=== PATIENT | female | born 1995 | race Caucasian/White ===

== ENCOUNTER 2021-03-25 16:21 | Emergency (ER) | payer MEDICAID ==
[~2021-03-25] VITALS: Ht 165.1 cm; Wt 74.8 kg
[2021-03-25 16:41] VITALS: BP 140/75
--- NOTE | 2021-03-25 16:46 | NUR ---
PATIENT AMBULATED TO BED 12.
--- NOTE | 2021-03-25 17:11 | NUR ---
25 Y/O FEMALE C/O VAGINAL BLEEDING WITH LOWER ABDOMINAL PAIN 5/10 DESCRIBES CRAMPING X 2 DAYS. PT STATES SHE HAD SMALL CLOTS LAST NIGHT AND THIS MORNING LARGE CLOTS WITH PAIN. LMP 02/05/21. 6 WEEKS . DENIES N/V, DENIES FEVER/CHILLS. [id number] DENIES PMH NKA
--- NOTE | 2021-03-25 17:55 | NUR ---
DR. LYMAN AT PT BEDSIDE FOR FURTHER EVALUATION.
--- NOTE | 2021-03-25 18:09 | NUR ---
US TECH AT PT BEDSIDE.
[2021-03-25 18:34] LABS: BASOPHILS % (AUTO) 0.1 % (0.0-2.0); EOSINOPHILS # (AUTO) 0.5 K/uL (0-0.4); EOSINOPHILS % (AUTO) 4.8 % (0.0-4.0); HEMOGLOBIN 13.5 g/dL (12.0-16.0); LYMPHOCYTES # (AUTO) 1.8 K/uL (2.5-16.5); LYMPHOCYTES % (AUTO) 16.3 % (20.5-51.1); MEAN CORPUSCULAR HEMOGLOBIN 29 pg (27-31); MEAN CORPUSCULAR HGB CONC 33 g/dL (33-37); MONOCYTES # (AUTO) 0.3 K/uL (0.8-1.0); MONOCYTES % (AUTO) 2.3 % (1.7-9.3); NEUTROPHILS # (AUTO) 8.6 K/uL (1.8-7.7); NEUTROPHILS % (AUTO) 76.5 % (42.2-75.2); PLATELET COUNT (AUTO) 333 K/uL (140-450); RED BLOOD CELL COUNT(AUTO) 4.65 MIL/uL (4.20-5.40); RED CELL DISTRIBUTION WIDTH 13.3 % (11.6-13.7); WHITE BLOOD COUNT (AUTO) 11.2 K/uL (4.8-10.8)
[2021-03-25 18:36] LABS: APPEARANCE,URINE CLEAR (CLEAR); BILIRUBIN,URINE NEGATIVE (NEGATIVE); BLOOD, URINE 3+ (NEGATIVE); COLOR,URINE YELLOW (YELLOW); LEUKOCYTE ESTERASE ,URINE NEGATIVE (NEGATIVE); NITRITE, URINE NEGATIVE (NEGATIVE); PH,URINE 7.5 (5.0-9.0); UGLUCOSE NEGATIVE (NEGATIVE)
--- NOTE | 2021-03-25 18:36 | NUR ---
PT SITTING IN CHAIR COMFORTABLY, VISIBLE EQUAL RISE AND FALL OF CHEST, VSS, WILL CONTINUE TO MONITOR.
[2021-03-25 19:12] LABS: RBC,URINE 0-5 /HPF (0-5); WBC,URINE 0-5 /HPF (0-5)
--- NOTE | 2021-03-25 19:20 | NUR ---
GAVE REPORT TO NATHANIEL STAHL. TRANSFER OF CARE AT THIS TIME.
[2021-03-25 20:29] VITALS: BP 122/70
--- NOTE | 2021-03-25 20:29 | NUR ---
Patient discharged with v/s stable. Written and verbal after care instructions given and explained. Patient verbalized understanding. Ambulatory with steady gait. All questions addressed prior to discharge. Advised to follow up with PMD.
== END 2021-03-25 20:29 | disposition home or self-care (01) ==
LOC: MED 16:21
DX: O20.0 Threatened abortion (principal); Z3A.01 Less than 8 weeks gestation of pregnancy
CPT/HCPCS: 36415; 76817; 81001; 81025; 84702; 85025; 86900; 86901; 99284; Q0092